=== PATIENT | female | born 2000 | race African-American/Black ===

== ENCOUNTER 2022-03-31 09:20 | Emergency (ER) | payer MEDICAID ==
[~2022-03-31] VITALS: Ht 160 cm; Wt 65.9 kg
[2022-03-31 09:22] VITALS: BP 120/66
[2022-03-31] MEDS ORDERED: DIPH50 PO (09:47)
== END 2022-03-31 09:53 | disposition home or self-care (01) ==
LOC: EMS 09:25
DX: R21 Rash and other nonspecific skin eruption (principal)
CPT/HCPCS: 99282; 99283

== ENCOUNTER 2022-12-19 10:41 | Emergency (ER) | payer MEDICAID, OTHER ==
[~2022-12-19] VITALS: Ht 157.5 cm; Wt 54.5 kg
[~2022-12-19 10:41] MED LIST: DIPH50 PO
[2022-12-19 13:05] VITALS: BP 121/65
[2022-12-19 13:21] LABS: COVID AG,FIA SOURCE NASAL SWAB
[2022-12-19 13:30] LABS: APPEARANCE,URINE HAZY (CLEAR); BILIRUBIN,URINE NEGATIVE (NEGATIVE); GLUCOSE, URINE (UA) NEGATIVE (NEGATIVE); LEUKOCYTE ESTERASE ,URINE LARGE (NEGATIVE); NITRATE,URINE NEGATIVE (NEGATIVE); OCCULT BLOOD,URINE NEGATIVE (NEGATIVE); PROTEIN,URINE TRACE mg/dL (NEGATIVE); SPECIFIC GRAVITIY, URINE 1.026 (1.003-1.030)
[2022-12-19 13:50] LABS: SQUAMOUS EPITHELIAL CELL,UR Many /LPF (None Seen)
[2022-12-19 13:50] LABS: INFLUENZA TYPE A NEGATIVE FOR TYPE A (NEGATIVE); INFLUENZA TYPE B NEGATIVE FOR TYPE B (NEGATIVE)
[2022-12-19 13:51] LABS: RBC,URINE None Seen /HPF (0-2)
[2022-12-19 13:52] LABS: BACTERIA,URINE Few /HPF (None Seen)
[2022-12-19 14:31] LABS: ANION GAP 10 mmol/L (8-16); CALCIUM, TOTAL 9.2 mg/dL (8.8-10.5); CARBON DIOXIDE 28 mmol/L (22-29); CHLORIDE 99 mmol/L (98-107); GLOMERULAR FILTR. RATE CALC > 60 mL/min (>60); GLUCOSE,RANDOM 73 mg/dL (70-110); POTASSIUM 4.1 mmol/L (3.5-5.1); SODIUM SERUM 137 mmol/L (136-145); UREA NITROGEN, BLOOD 7 mg/dL (7-18)
[2022-12-19] MEDS ORDERED: NITR-75 PO (15:11)
== END 2022-12-19 15:42 | disposition home or self-care (01) ==
LOC: EMS 11:03
DX: N39.0 Urinary tract infection, site not specified (principal); Z20.822 Contact with and (suspected) exposure to COVID-19
CPT/HCPCS: 80048; 81001; 84703; 87086; 87186; 87804; 99283

== ENCOUNTER 2023-12-19 10:33 | Emergency (ER) | payer OTHER ==
[~2023-12-19] VITALS: Ht 154.9 cm; Wt 70.5 kg
[~2023-12-19 10:33] MED LIST changes: -DIPH50 PO; +NITR-75 PO
[2023-12-19] MEDS ORDERED: LEVE250T PO (10:43)
[2023-12-19 10:45] VITALS: BP 116/67; PULSE 76; RESP 16; TEMP 89.4
== END 2023-12-19 12:26 | disposition left against medical advice (07) ==
LOC: EMS 10:33
DX: R10.9 Unspecified abdominal pain (principal); Z53.21 Procedure and treatment not carried out due to patient leaving prior to being seen by health care provider
CPT/HCPCS: 84703; 99281; Z7502